=== PATIENT | female | born 1980 | race Asian ===

== ENCOUNTER 2020-10-03 01:59 | Inpatient (IN) | payer OTHER ==
[2020-10-03 03:04] LABS: #Eosinphils 0.2 10x3/uL (0.0-0.5); #Neutrophils 3.3 10x3/uL (1.5-8.4); %Basophils 0.9 % (0.0-2.0); %Eosinophils 4.3 % (0.0-6.0); %Lymphocytes 20.2 % (18.0-47.0); %Monocytes 0.7 % (0.0-10.0); %Neutrophils 71.7 % (40.0-75.0); Hemoglobin 14.2 g/dL (12.0-15.5); Mean Corpuscular HGB CONC 33.3 g/dL (32.0-36.0); Mean Corpuscular Hemoglobin 29.6 pg (27.0-33.0); Mean Platelet Volume 10.6 fl (7.4-10.4); Platelet Count 202 10x3/uL (150-450); RBC Distribution Width 12.2 % (11.5-14.5); White Blood Cell (WBC) Count 4.6 10x3/uL (3.5-10.5)
[2020-10-03 03:18] LABS: ALT (SGPT) 45 U/L (8-55); AST (SGOT) 34 U/L (5-34); Albumin 4.2 g/dL (3.5-5.0); Alkaline Phosphatase 59 U/L (40-110); Anion Gap 15 mmol/L (10-20); BUN (Urea Nitrogen) 15 mg/dL (7.0-18.7); Bilirubin, Total 0.4 mg/dL (0.2-1.2); Calc. Creatinine Clearance 0 mL/min (70-130); Calcium 8.9 mg/dL (7.8-10.44); Carbon Dioxide 22 mmol/L (22-29); Chloride 105 mmol/L (98-107); Globulin 2.8 g/dL (2.4-3.5); Glucose 112 mg/dL (70-105); Potassium 3.7 mmol/L (3.5-5.1); Sodium 138 mmol/L (136-145)
[2020-10-03] MEDS ORDERED: Morphine 4 MG/ML VIAL ONE ×2 (03:26→08:08)
[2020-10-03] MEDS ORDERED: Ondansetron ODT 4 MG TAB ONE (03:27)
[2020-10-03 03:52] LABS: Bilirubin Neg (Negative); Blood, Urine 25 (Negative); Clarity Cloudy (Clear); Glucose, Urine (Dipstick) Normal (Negative); Ketone, Urine Negative (Negative); Leukocyte 500 (Negative); Nitrite Positive (Negative); Protein, Urine (Dipstick) 15 mg/dl (Neg-Trace); Urobilinogen Normal mg/dL (Less than 2)
[2020-10-03 03:53] LABS: Pregu Control Background? CLEAR/WHITE (CLR/WHITE); Pregu Control Bar Appear? YES (CONTROL BAR)
[2020-10-03 03:54] LABS: Pregnancy Test - Urine (BHCG) Negative (Negative)
[2020-10-03 04:08] LABS: Bacteria/HPF 2+ HPF (None Seen); RBC/HPF 0-3 HPF (0-3); WBC/HPF 21-50 HPF (0-3)
[2020-10-03] MEDS ORDERED: cefTRIAXone\\ROCEPHIN 1 GM VIAL ONE (04:15)
[2020-10-03] MEDS ORDERED: Ketorolac Tromethamine 15 MG/ML VIAL ONE (04:15)
[2020-10-03] MEDS ORDERED: HYDROmorphone 0.5 MG/0.5 ML SYRINGE ONE ×2 (04:23→05:19)
[2020-10-03] MEDS ORDERED: Ondansetron PF 4 MG/2 ML Vial IVP PRN (05:21)
[2020-10-03] MEDS ORDERED: Ondansetron ODT 4 MG TAB PO PRN (05:21)
[2020-10-03] MEDS ORDERED: Morphine 2 MG/ML VIAL ONE (06:23)
[2020-10-03] MEDS ORDERED: Potassium Chloride 20 MEQ/100 ML PREMIX BAG ONE (06:32)
[2020-10-03 09:08] VITALS: BMI 36.6
[2020-10-03] MEDS ORDERED: Morphine 4 MG/ML VIAL SLOW IVP PRN (09:15)
[2020-10-03] MEDS: Morphine 4 MG/ML VIAL SLOW IVP PRN ×2 (09:28→16:07)
[2020-10-03] MEDS: Ketorolac Tromethamine 30 MG/ML VIAL IVP SCH ×3 (10:54→21:31)
[2020-10-03] MEDS: Sodium Chloride 0.9% 1,000 ML IV SCH ×3 (11:03→22:03)
[2020-10-03] MEDS: Potassium Chloride 10 MEQ/100 ML PREMIX BAG IVPB SCH ×2 (12:44→12:46)
[2020-10-03] MEDS ORDERED: Iopamidol 15 ML ONE (13:48)
[2020-10-03 15:52] LABS: SARS-CoV-2 PCR by NAA Not Detected (NotDetected)
[2020-10-03] MEDS ORDERED: Levofloxacin 500 mg/D5W 100 ml Premix Bag ONE (16:28)
[2020-10-03] MEDS ORDERED: Glycopyrrolate 0.2 MG/ML 5 ML SYRINGE ONE (16:31)
[2020-10-03] MEDS ORDERED: Dexamethasone 20 MG/5 ML VIAL ONE (16:31)
[2020-10-03] MEDS ORDERED: PROPOFOL 20 ML ONE (16:31)
[2020-10-03] MEDS ORDERED: Ondansetron PF 4 MG/2 ML Vial ONE (16:31)
[2020-10-03] MEDS ORDERED: Fentanyl 100 MCG/2 ML VIAL ONE ×2 (16:31→16:55)
[2020-10-03] MEDS ORDERED: Midazolam HCl 2 mg/2 ml Vial ONE (16:31)
[2020-10-03] MEDS ORDERED: Lidocaine 1% PF 5 ML VIAL ONE (16:31)
[2020-10-03] MEDS ORDERED: Labetalol HCl 100 MG/20 ML VIAL ONE (18:49)
[2020-10-03] MEDS: Oxybutynin 5 MG TAB PO SCH (22:05)
[2020-10-04] MEDS: Sodium Chloride 0.9% 1,000 ML IV SCH (04:15)
[2020-10-04] MEDS: Ketorolac Tromethamine 30 MG/ML VIAL IVP SCH (04:16)
[2020-10-04] MEDS ORDERED: cefTRIAXone\\ROCEPHIN 1 GM in Sodium Chloride 0.9% 100 ML IVPB SCH (05:00)
[2020-10-04 05:48] LABS: Anion Gap 14 mmol/L (10-20); BUN (Urea Nitrogen) 15 mg/dL (7.0-18.7); Calc. Creatinine Clearance 132 mL/min (70-130); Carbon Dioxide 21 mmol/L (22-29); Chloride 106 mmol/L (98-107); Glucose 214 mg/dL (70-105); Potassium 3.9 mmol/L (3.5-5.1); Sodium 137 mmol/L (136-145)
[2020-10-04 06:32] LABS: Hemoglobin 12.1 g/dL (12.0-15.5); Mean Corpuscular HGB CONC 33.5 g/dL (32.0-36.0); Mean Corpuscular Volume 89.6 fl (81.6-98.3); Mean Platelet Volume 11.2 fl (7.4-10.4); RBC Distribution Width 12.6 % (11.5-14.5); Red Blood Cell (RBC) Count 4.03 10x6/uL (3.90-5.03); White Blood Cell (WBC) Count 19.2 10x3/uL (3.5-10.5)
[2020-10-04 06:49] LABS: Band 19 % (5-11); Lymphocytes 4 % (21-51); Metamyelocyte 2 % (0-0); Monocytes 2 % (0-10); Reactive Lymphocytes 2 % (0-10)
[2020-10-04 06:50] LABS: Dohle Bodies SLIGHT
[2020-10-04 07:24] LABS: MDiff Complete? YES; Platelet Count 127 10x3/uL (150-450)
[2020-10-04 07:26] LABS: Neutrophil 71 % (42-75)
[2020-10-04 07:43] VITALS: BP 100/64; TEMP 98.3
[2020-10-04] MEDS ORDERED: Tamsulosin HCl 0.4 MG CAP PO SCH (09:00)
[2020-10-04] MEDS: Oxybutynin 5 MG TAB PO SCH (10:03)
[2020-10-10 18:36] LABS: CA Oxalate Dihydrate 20 % (.); CA Oxalate Monohydrate 40 % (.); Color Tan (.); Stone Weight 27 mg (.)
== END 2020-10-04 10:18 | disposition home or self-care (01) | DRG 661 ==
LOC: CSHERS 01:59 → CSHPP 08:02 → OBSVTOIN 08:02
PROVIDERS: ADMIT Family Medicine; ATTEND Internal Medicine
PROC: 0TC68ZZ Extirpation of Matter from Right Ureter, Via Natural or Artificial Opening Endoscopic (ICD-10-PCS; principal; 2020-10-03)
PROC: 0T768DZ Dilation of Right Ureter with Intraluminal Device, Via Natural or Artificial Opening Endoscopic (ICD-10-PCS; 2020-10-03)
PROC: 0TC38ZZ Extirpation of Matter from Right Kidney Pelvis, Via Natural or Artificial Opening Endoscopic (ICD-10-PCS; 2020-10-03)
DX: N13.6 Pyonephrosis (principal); Z20.822 Contact with and (suspected) exposure to COVID-19; E28.2 Polycystic ovarian syndrome; Z87.442 Personal history of urinary calculi; R00.0 Tachycardia, unspecified
CPT/HCPCS: 36415; 74176; 80048; 80053; 81003; 81015; 81025; 82365; 83735; 85025; 87077; 87086; 87186; 87635; 88300; 94760; 96365; 96375; 96376; C2625; J0696; J1100; J1170; J1885; J1956; J2250; J2270; J2405; J2704; J3010; J3480; J3490; Q0162; Q9967; U0003; U0005

== ENCOUNTER → 2022-06-18 08:59 | Outpatient (CLI) | payer BC | END | disposition home or self-care (01) | LOC: CSHULT 08:59 | PROVIDERS: ATTEND Family Medicine | DX: N63.23 Unspecified lump in the left breast, lower outer quadrant (principal); N63.25 Unspecified lump in the left breast, overlapping quadrants; N64.9 Disorder of breast, unspecified | CPT/HCPCS: 19083; 19084; 77066; 88112; 88305; 88342; G0279 ==

== ENCOUNTER 2023-07-03 12:42 | Outpatient (CLI) | payer BC ==
[2023-07-03] MEDS ORDERED: Iopamidol 300 61% 100 ML VIAL FS ONE (13:39)
== END 2023-07-03 12:43 | disposition home or self-care (01) ==
LOC: CSHCT 12:42
PROVIDERS: ATTEND Family Medicine
DX: N20.0 Calculus of kidney (principal); N28.9 Disorder of kidney and ureter, unspecified; K76.9 Liver disease, unspecified
CPT/HCPCS: 74178; 74410; Q9967